=== PATIENT | female | born 2000 | race Caucasian/White ===

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

== ENCOUNTER 2022-02-02 23:39 | Inpatient (IN) | payer BC, MEDICAID ==
[2022-02-03] MEDS ORDERED: Bupivacaine 0.25% 10 ML SDV ONE
[2022-02-03] MEDS ORDERED: Nalbuphine HCl 10 MG/ 1ML Amp IVPUSH PRN (02:18)
[2022-02-03] MEDS ORDERED: Calcium Carbonate 500 MG Tab.Chew PO PRN (02:18)
[2022-02-03] MEDS ORDERED: Sodium Chloride 0.9% 10 ML Syringe FLUSH PRN (02:18)
[2022-02-03] MEDS ORDERED: Oxytocin/Lactated Ringers 10 UNIT/1,000 ML BAG IV SCH (02:30)
[2022-02-03] MEDS: Lactated Ringers 1,000 ML IV SCH ×4 (02:41→05:50)
[2022-02-03] MEDS ORDERED: Bupivacaine/fentaNYL/NS 100 ML Bag EPIDUR PRN (03:09)
[2022-02-03] MEDS ORDERED: diphenhydrAMINE 50 MG/ML SDV IVPUSH PRN (03:09)
[2022-02-03] MEDS ORDERED: ePHEDrine 50 MG/ML SDV IVPUSH PRN (03:09)
[2022-02-03] MEDS ORDERED: fentaNYL 100 MCG/2 ML SDV EPIDUR PRN (03:09)
[2022-02-03] MEDS ORDERED: Benzocaine/Menthol 20%-0.5% Spray 78 GM Cannister TOP PRN (08:07)
[2022-02-03] MEDS ORDERED: Docusate Sodium 100 MG Cap PO PRN (08:07)
[2022-02-03] MEDS ORDERED: Witch Hazel Medicated Pads 40/Jar TOP PRN (08:07)
[2022-02-03] MEDS ORDERED: Acetaminophen 325 MG Tab PO PRN (08:07)
[2022-02-03] MEDS ORDERED: Sodium Chloride 0.9% 10 ML Syringe FLUSH SCH (09:00)
[2022-02-03] MEDS: Ibuprofen 600 MG Tab PO PRN ×3 (09:32→22:27)
[2022-02-04] MEDS: Ibuprofen 600 MG Tab PO PRN (08:56)
== END 2022-02-04 09:15 | disposition home or self-care (01) | DRG 560 ==
LOC: JD.OBCHECK 23:39 → JD.OB 23:41 → JD.OBCHECK 02-03 02:18 → JD.OB 02-03 02:19 → OBSVTOIN 02-03 07:57 → JD.OB 02-03 11:03
PROVIDERS: ADMIT Obstetrics & Gynecology; ATTEND Obstetrics & Gynecology
PROC: 10E0XZZ Delivery of Products of Conception, External Approach (ICD-10-PCS; principal; 2022-02-03)
PROC: 0KQM0ZZ Repair Perineum Muscle, Open Approach (ICD-10-PCS; 2022-02-03)
PROC: 10907ZC Drainage of Amniotic Fluid, Therapeutic from Products of Conception, Via Natural or Artificial Opening (ICD-10-PCS; 2022-02-03)
PROC: 3E0R3BZ Introduction of Anesthetic Agent into Spinal Canal, Percutaneous Approach (ICD-10-PCS; 2022-02-03)
DX: O43.123 Velamentous insertion of umbilical cord, third trimester (principal); Z3A.38 38 weeks gestation of pregnancy; Z37.0 Single live birth; O70.1 Second degree perineal laceration during delivery
CPT/HCPCS: 36415; 51702; 59025; 59409; 85025; 86592; A9270-GY; J2590; J3010; J3490; J7120

== ENCOUNTER 2024-01-04 19:06 | Emergency (ER) | payer BC, MEDICAID | END 2024-01-04 19:50 | disposition left against medical advice (07) | LOC: JD.ED 19:06 | DX: Z53.21 Procedure and treatment not carried out due to patient leaving prior to being seen by health care provider (principal) ==

== ENCOUNTER 2024-09-02 02:10 | Emergency (ER) | payer MEDICAID, OTHER ==
[2024-09-02 02:21] LABS: BASOPHILS PERCENT AUTO 0.2 % (0.0-1.0); EOSINOPHILS ABSOLUTE AUTO 0.1 K/mm3 (0.0-0.4); EOSINOPHILS PERCENT AUTO 0.7 % (0.0-6.0); HEMATOCRIT 44.2 % (37.0-47.0); HEMOGLOBIN 14.6 gm/dl (12.0-16.0); IMMATURE GRAN ABSOLUTE AUTO 0.02 K/mm3 (0.00-0.05); IMMATURE GRAN PERCENT AUTO 0.2 % (0.0-0.4); LYMPHOCYTES ABSOLUTE AUTO 3.3 K/mm3 (1.0-4.8); LYMPHOCYTES PERCENT AUTO 37.5 % (24.0-44.0); MEAN CORPUSCULAR HEMOGLOBIN 27.6 pg (28.0-32.0); MEAN CORPUSCULAR VOLUME 83.6 fl (83.0-99.0); MEAN PLATELET VOLUME 8.6 fl (9.4-12.3); MONOCYTES ABSOLUTE AUTO 0.5 K/mm3 (0.0-0.8); MONOCYTES PERCENT AUTO 6.2 % (0.0-8.0); NEUTROPHILS ABSOLUTE AUTO 4.8 K/mm3 (1.8-7.7); NEUTROPHILS PERCENT AUTO 55.2 % (41.0-71.0); PLATELET COUNT,PLT 309 K/mm3 (150-400); RED BLOOD CELL COUNT 5.29 M/mm3 (4.10-5.30); WHITE BLOOD CELL COUNT,WBC 8.72 K/mm3 (3.9-11.3)
[2024-09-02] MEDS: Sodium Chloride 0.9% 10 ML Syringe FLUSH ONE (02:46)
[2024-09-02] MEDS: Iopamidol 755 Mg/ML 100 ML Bottle IVPUSH ONE (02:47)
[2024-09-02 02:53] LABS: A/G RATIO 1.1 (1-2); ALANINE AMINOTRANSFERASE,ALT 28 U/L (14-59); ALBUMIN 4.1 g/dl (3.4-5.0); ALKALINE PHOSPHATASE 99 U/L (46-116); ASPARTATE AMNIOTRANSFERASE,AST 23 U/L (15-37); BILIRUBIN TOTAL 0.2 mg/dL (0.2-1.0); BLOOD UREA NITROGEN,BUN 4 mg/dL (7-18); CALCIUM 8.3 mg/dL (8.5-10.1); CARBON DIOXIDE,CO2 25 mEq/L (21-32); CHLORIDE,CL 106 mEq/L (98-107); CREATININE 0.8 mg/dL (0.55-1.02); EST CRCL DRUG DOSING (CG) 102.39 mL/min; ESTIMATED GFR 106 mL/min (>60); ETHANOL BLOOD MEDICAL 0.18 gm% (0.00); GLUCOSE RANDOM 118 mg/dL (70-99); LIPASE 28 U/L (16-77); PROTEIN TOTAL,TP 7.7 g/dl (6.4-8.2); SODIUM,NA 146 mEq/L (136-145)
[2024-09-02 03:16] LABS: TROPONIN I HIGH SENSITIVITY < 4 pg/mL (<=51)
[2024-09-02] MEDS: LORazepam 2 MG/ML SDV IVPUSH ONE (03:38)
[2024-09-02] MEDS: Sodium Chloride 0.9% 10 ML Syringe FLUSH PRN (03:39)
[2024-09-02 05:06] LABS: APPEARANCE,URINE CLEAR (Clear); BILIRUBIN,URINE NEGATIVE (Negative); COLOR,URINE LIGHT YELLOW (Yellow); GLUCOSE,URINE NEGATIVE (Negative); KETONES,URINE NEGATIVE (Negative); LEUKOCYTE ESTERASE,URINE 1+ (Negative); NITRITE,URINE NEGATIVE (Negative); OCCULT BLOOD,URINE 1+ (Negative); PROTEIN,URINE NEGATIVE (Negative); UROBILINOGEN,URINE 0.2 (0.2-1.0)
[2024-09-02 05:16] LABS: BARBITURATE SCREEN,URINE NEGATIVE (CUTOFF=200); BENZODIAZEPINES SCREEN,URINE NEGATIVE (CUTOFF=150); BUPRENORPHINE SCREEN,URINE NEGATIVE (CUTOFF=10); METHADONE SCREEN, URINE NEGATIVE (CUTOFF=200); METHAMPHETAMINES SCREEN, URINE NEGATIVE (CUTOFF=500); OXYCODONE SCREEN,URINE NEGATIVE (CUT0FF=100); THC SCREEN,URINE 20 NG/ML PRESUMPTIVE POSITIVE (CUTOFF=50)
[2024-09-02 05:18] LABS: BACTERIA,URINE FEW /hpf (FEW); EPITHELIAL CELLS,URINE 0-5 /hpf (0-5); MUCUS,URINE FEW /hpf (FEW); RBC,URINE 0-5 /hpf (0-5); WBC,URINE 0-5 /hpf (0-5)
[2024-09-02 05:24] LABS: AMPHETAMINES SCREEN, URINE NEGATIVE (CUTOFF=500)
== END 2024-09-02 06:57 ==
LOC: JD.ED 02:10
DX: S06.6XAA Traumatic subarachnoid hemorrhage with loss of consciousness status unknown, initial encounter (principal); S06.360A Traumatic hemorrhage of cerebrum, unspecified, without loss of consciousness, initial encounter; V89.2XXA Person injured in unspecified motor-vehicle accident, traffic, initial encounter
CPT/HCPCS: 36415; 70450; 70450-26; 71260; 71260-26; 72125; 72125-26; 74177; 74177-26; 80053; 80306; 80307; 81001; 83690; 84484; 84703; 85025; 87086; 93005; 96374; 99285-25; J2060; Q9967

== ENCOUNTER 2025-05-23 19:29 | Emergency (ER) | payer OTHER ==
[2025-05-23] MEDS ORDERED: Sodium Chloride 0.9% 10 ML Syringe FLUSH PRN (19:45)
[2025-05-23] MEDS: Ondansetron 4 MG/2 ML SDV IVPUSH ONE (20:16)
[2025-05-23 20:32] LABS: BASOPHILS ABSOLUTE AUTO 0.0 K/mm3 (0.0-0.2); BASOPHILS PERCENT AUTO 0.3 % (0.0-1.0); EOSINOPHILS ABSOLUTE AUTO 0.1 K/mm3 (0.0-0.4); EOSINOPHILS PERCENT AUTO 0.8 % (0.0-6.0); IMMATURE GRAN ABSOLUTE AUTO 0.01 K/mm3 (0.00-0.05); IMMATURE GRAN PERCENT AUTO 0.1 % (0.0-0.4); LYMPHOCYTES ABSOLUTE AUTO 2.4 K/mm3 (1.0-4.8); LYMPHOCYTES PERCENT AUTO 34.1 % (24.0-44.0); MEAN PLATELET VOLUME 8.7 fl (9.4-12.3); MONOCYTES ABSOLUTE AUTO 0.6 K/mm3 (0.0-0.8); MONOCYTES PERCENT AUTO 8.5 % (0.0-8.0); NEUTROPHILS ABSOLUTE AUTO 4.0 K/mm3 (1.8-7.7); NEUTROPHILS PERCENT AUTO 56.2 % (41.0-71.0); NRBC ABSOLUTE 0.00 (0.00-0.02); NRBC PERCENT 0.0 % (0.0-0.2); PLATELET COUNT,PLT 305 K/mm3 (150-400); RED BLOOD CELL COUNT 5.16 M/mm3 (4.10-5.30); WHITE BLOOD CELL COUNT,WBC 7.16 K/mm3 (3.9-11.3)
[2025-05-23 20:33] LABS: APPEARANCE,URINE CLEAR (Clear); GLUCOSE,URINE NEGATIVE (Negative); OCCULT BLOOD,URINE NEGATIVE (Negative)
[2025-05-23 21:11] LABS: A/G RATIO 1.2 (1-2); ALANINE AMINOTRANSFERASE,ALT 39.0 U/L (14-59); ASPARTATE AMNIOTRANSFERASE,AST 26.0 U/L (15-37); BILIRUBIN TOTAL 0.9 mg/dL (0.2-1.0); BLOOD UREA NITROGEN,BUN 8.0 mg/dL (7-18); CARBON DIOXIDE,CO2 26.0 mEq/L (21-32); CHLORIDE,CL 104.0 mEq/L (98-107); CREATININE 0.8 mg/dL (0.55-1.02); EST CRCL DRUG DOSING (CG) 102.39 mL/min; ESTIMATED GFR 106.0 mL/min (>60); GLUCOSE RANDOM 81.0 mg/dL (70-99); POTASSIUM,K 3.2 mEq/L (3.5-5.1); PROTEIN TOTAL,TP 8.2 g/dl (6.4-8.2); SODIUM,NA 140.0 mEq/L (136-145)
[2025-05-23] MEDS: Iopamidol 612 MG/ML 100 ML Bottle IVPUSH ONE (22:13)
[2025-05-23] MEDS: Ketorolac 30 MG/ML SDV IVPUSH ONE (23:06)
== END 2025-05-23 23:15 | disposition home or self-care (01) ==
LOC: JD.ED 19:29
DX: R10.31 Right lower quadrant pain (principal); Z79.899 Other long term (current) drug therapy
CPT/HCPCS: 36415; 74177; 76830; 80053; 81003; 84703; 85025; 86140; 96374; 96375; 99284; J1885; J2405; J7030; Q9967; 99282; J1171